=== PATIENT | male | born 1970 | race Caucasian/White ===

== ENCOUNTER 2016-12-03 10:27 | Inpatient (IN) | payer BC ==
--- NOTE | ~2016-12-03 | DS ---
Discharge Summary [facility] [address] [place]. [address] NAME: BETO WOLFF : 70 STATUS : DIS IN PAT#: [id number] AGE: 46 ADM/REG DATE : 12/03/16 MR#: [id number] REPORT SERV DATE: 12/13/16 DICTATED BY: TAYE SUBRAMANIAN DATE: 12/12/16 REPORT STATUS : Draft TRANSCRIBED BY: JOSE CRUZ DATE: 12/12/16 Data Collection from hospitalization DISCHARGE DIAGNOSIS(ES): 1. Inferior ST-elevation myocardial infarction. 2. Coronary artery disease. 3. Diabetes mellitus type 2. 4. Moderate left ventricular dysfunction. CONSULTATIONS: Naheed Garcia M.D. PROCEDURES PERFORMED: 1. Cardiac catheterization and PCI, 12/03/2016. 2. Echocardiogram, 12/05/2016. MEDICATIONS: Aspirin 81 mg daily, Lipitor 80 mg at bedtime, Coreg 6.25 mg twice daily, Humalog 15 units before meals, Humalog level 1 sliding scale before meals and at bedtime, Prinivil 2.5 mg daily, Brilinta 90 mg every 12 hours, Lantus insulin 45 units as directed, and nitroglycerin 0.4 mg sublingually as directed. CONDITION AT DISCHARGE: Upon discharge, he did appear to be doing well and had no complaints. DISPOSITION: He was discharged home to continue an 1800-calorie ADA, Mediterranean cardiac diet with activity as discussed. He was to follow up with me in the office on 12/27/2016, follow up with Pepper Ramsay on 12/12/2016. HOSPITAL COURSE: This 46-year-old male had presented to the [facility] Emergency Department for evaluation of chest discomfort and was found to have an EKG suggestive of evolving inferolateral myocardial infarction. Code STEMI was activated, and I discussed the case with the ER physician. Based on the description of his presentation and the EKG, we elected to proceed with cardiac catheterization. I briefly evaluated the patient prior to his arrival in the catheterization lab, and he reported a history of substernal chest discomfort beginning approximately 7 a.m., which was three hours before I was called while he was doing yard work. This had persisted and was associated with diaphoresis followed by an episode of nausea and vomiting. Upon arrival to the emergency room, his EKG demonstrated ST elevations in the inferior and lateral leads. He was given nitroglycerin with complete resolution of pain and reported no pain at the time of evaluation but with ongoing ST elevations based on telemetry leads. He reported no symptoms in the days prior. He reported no use of illicit substances. He was admitted for further evaluation and treatment. As above, he had been taken to the cardiac clinical laboratory science professor on the day of admission where he did undergo the above catheterization and PCI. He did tolerate this well and was transferred to the recovery room. He had also been seen on the day of admission by Dr. Garcia for medical management. She had noted that his last hemoglobin A1c was at 14 and that he was not on any medication. She placed him on insulin drip level 2 per protocol, and she had also recommended monitoring his blood sugar. Once his blood sugar was below 200, the nurses were to call her and he was to be transitioned to long-acting insulin with sliding scale. He was counseled about his blood sugar and diabetes and a repeat hemoglobin A1c was to be done Discharge Summary [address] [address] NAME: BETO WOLFF : 70 STATUS : DIS IN PAT#: [id number] AGE: 46 ADM/REG DATE : 12/03/16 MR#: [id number] REPORT SERV DATE: 12/13/16 DICTATED BY: TAYE SUBRAMANIAN DATE: 12/12/16 REPORT STATUS : Draft TRANSCRIBED BY: JOSE CRUZ DATE: 12/12/16 following the day of admission. He was afebrile and his vital signs were stable. He was continued on supportive care. He had no complaints of chest pain and did appear to be doing well. On 12/05/2016, he still had no complaints of chest pain and did state that he had felt good. He did undergo the above echocardiogram. He was continued on supportive care. He did undergo diabetic education. Adjustments were also made in his insulin dosages. He had remained in sinus rhythm. On 12/06/2016, he continued in stable condition and had remained in sinus rhythm. He had no new complaints noted. Due to his stable condition, he was then discharged with the above instructions. Information collected by: Fawn Varner. I submit the above information as my discharge summary. FERMÍN/JOSE CRUZ Taye Subramanian MD / [id number] CC: MD Pepper Kahn M.D.
--- NOTE | ~2016-12-03 | CN ---
Consultation Report [facility] [address] [place]. [address] NAME: BETO CABALLERO : 70 STATUS : ADM IN [facility]#: [id number] AGE: 46 ADM/REG DATE : 12/03/16 MR#: [id number] REPORT SERV DATE: 12/03/16 DICTATED BY: DON ESPINAL DATE: 12/03/16 REPORT STATUS : Draft TRANSCRIBED BY: MODMary Kate DATE: 12/03/16 DATE OF CONSULTATION: 12/03/2016 REASON FOR CONSULT: Management of diabetes mellitus with severe hyperglycemia. HISTORY OF PRESENT ILLNESS: Mr. Caballero is a very pleasant 46-year-old male who is admitted by email marketing executive, Dr. Subramanian for ST-elevation myocardial infarction. He is currently in the intensive care unit. Dr. Subramanian is taking care for his infarction. I am consulted for his diabetes because his blood sugar is elevated in the range of 400. The patient reported that he used to be on metformin, but he stopped that two years ago. He used to see Dr. Pepper Ramsay as a primary care physician, but he has not seen her for 2-1/2 years. He says that he does not check his blood sugar. He says that very often he becomes thirsty and drinks a lot of fluid. He denies any history of nausea or vomiting. He denies any history of an eye problems. He denies any history of numbness or burning in his arms and feet. He currently does not have any chest pain, no shortness of breath. He looks very comfortable now. REVIEW OF SYSTEMS: 14-point review of systems done and negative except what is stated in the history of present illness. PAST MEDICAL HISTORY: Known for diabetes, and according to the patient, his last hemoglobin A1c was 14. He has also history of hypertension and hypercholesterolemia in the past. FAMILY HISTORY: Positive for diabetes on the maternal side. MEDICATIONS: He does not take any medications. ALLERGIES: HE IS NOT ALLERGIC TO ANY MEDICINES. SOCIAL HISTORY: He quit smoking seven years ago. No alcohol. No recreational drug use. He is , he has and children. PAST SURGICAL HISTORY: He did not have any surgeries in the past. PHYSICAL EXAMINATION: GENERAL: Overweight male, not in acute distress, resting quietly. VITAL SIGNS: Blood pressure 134/74, temperature 98.5, heart rate 103, respiratory rate 18, and oxygen saturation 95 on room air. HEENT: Head atraumatic, normocephalic. Conjunctivae clear. Pupils are equal and reactive to light and accommodation. Extraocular muscles are intact. NECK: Supple. Trachea is midline. No supraclavicular or cervical lymphadenopathy. LUNGS: Clear to auscultation bilaterally. Normal respiratory effort. CARDIOVASCULAR SYSTEM: Regular rate and rhythm. Point of maximal impulse not displaced. ABDOMEN: Soft, nontender, nondistended. Positive normoactive bowel sounds. EXTREMITIES: No clubbing, cyanosis, or edema. Consultation Report [facility] [id number] [place]. [address] NAME: BETO CABALLERO : 70 STATUS : ADM IN [facility]#: [id number] AGE: 46 ADM/REG DATE : 12/03/16 MR#: [id number] REPORT SERV DATE: 12/03/16 DICTATED BY: DON ESPINAL DATE: 12/03/16 REPORT STATUS : Draft TRANSCRIBED BY: JOSE CRUZ DATE: 12/03/16 SKIN: Normal color and turgor. LABORATORY RESULTS: Blood sugar 422. White count 9.7, hemoglobin 16.7, hematocrit 46.9, platelet count 208. Sodium 139, potassium 3.8, chloride 103, carbon dioxide 25, BUN 11, creatinine 1.28. Magnesium 1.8. Chest x-ray today, normal chest x-ray. ASSESSMENT AND PLAN: This is a 46-year-old male who just had a heart attack and admitted by email marketing executive, Dr. Subramanian. I am consulted for diabetes management. Diabetes management uncontrolled with severe hyperglycemia, medical noncompliance, have not seen a doctor for 2- 1/2 years. Last hemoglobin A1c was 14, not on any medications. We will start the patient on insulin drip level 2 per protocol. We will also monitor his blood sugar. Once blood sugar below 200, nurses to call me to transition him to long-acting insulin with a sliding scale. The patient was told that he needs to take care of his blood sugar because diabetes can cause severe complications such as heart attack, strokes in the future, also retinopathy. He was told that he needs to have eye examination yearly. He needs to check his urine for protein and he needs to have regular visits with Dr. Ramsay. Hemoglobin A1c is ordered. Currently, results are pending. Obesity. The patient will need some diet control and diabetic education regarding diet, obesity, and some physical exercises in the future. We will follow up on this patient. MG/MODL Don Espinal M.D. / [id number] CC: Taye Subramanian MD
--- NOTE | ~2016-12-03 | HP ---
History And Physical [facility] [address] [place]. [address] NAME: BETO CABALLERO : 70 STATUS : ADM IN [facility]#: [id number] AGE: 46 ADM/REG DATE : 12/03/16 MR#: [id number] REPORT SERV DATE: 12/03/16 DICTATED BY: TAYE SUBRAMANIAN DATE: 12/03/16 REPORT STATUS : Draft TRANSCRIBED BY: MODL DATE: 12/03/16 DATE OF ADMISSION: 12/03/2016 ADMISSION DIAGNOSIS: Acute myocardial infarction. HISTORY OF PRESENT ILLNESS: Mr. Caballero is a very pleasant 46-year-old male who presented to [facility] ED today for evaluation of chest discomfort and was found to have an EKG suggestive of evolving inferolateral ND. Code STEMI was activated and I discussed the case with the ER physician. Based on the description of his presentation and the EKG, we elected to proceed to the cardiac catheterization lab. I briefly evaluated the patient prior to his arrival in the lab engineer and he reported a history of substernal chest discomfort starting approximately 7:00 a.m., three hours before I was called while he was doing yard work. This persisted and was associated with diaphoresis, followed by an episode of nausea and vomiting. Upon arrival to the ER, his EKG demonstrated ST elevations in the inferior and lateral leads. He was given nitroglycerin with complete resolution of pain and reports no pain at the time of my evaluation, but with ongoing ST elevations based on telemetry leads. He reports no symptoms in the days prior. He reports no use of illicit substances. PAST MEDICAL HISTORY: Notable for diabetes, currently not managed with any medications. He denies hypertension, hyperlipidemia, history of tobacco abuse. He does have a family history of CAD with his father recently having undergone bypass surgery. ALLERGIES: NONE. MEDICATIONS: None. FAMILY HISTORY: As above. Otherwise, negative. SOCIAL HISTORY: Denies tobacco, alcohol, or illicits. REVIEW OF SYSTEMS: Per HPI. Otherwise, negative. PHYSICAL EXAMINATION: VITAL SIGNS: Blood pressure 150/100, heart rate approximately 95, respiratory rate 16. GENERAL: Appears comfortable. HEENT: Sclerae anicteric; mucous membranes moist. NECK: No JVD. Thyroid not tender or enlarged CARDIOVASCULAR: Regular rhythm with normal S1/S2. No murmurs, rubs, or gallop. PULMONARY: Lung woods CTA. ABDOMEN: Soft, nontender, no masses EXTREMITIES: Warm, no edema. NEUROLOGIC: Grossly without deficits LABORATORY DATA: Labs pending at the time of dictation. EKG, 12/03/2016, time 10:09, demonstrates sinus rhythm, rate 99, ST elevations of approximately 3-4 mm in II, III, AVF, History And Physical [address] [place]. [address] NAME: BETO CABALLERO : 70 STATUS : ADM IN PAT#: [id number] AGE: 46 ADM/REG DATE : 12/03/16 MR#: [id number] REPORT SERV DATE: 12/03/16 DICTATED BY: TAYE SUBRAMANIAN DATE: 12/03/16 REPORT STATUS : Draft TRANSCRIBED BY: JOSE CRUZ DATE: 12/03/16 and V4 through V6, with ST depressions in aVL. No prior EKG for comparison. IMPRESSION/RECOMMENDATIONS: 1. Evolving acute inferior inferolateral myocardial infarction. 2. History of diabetes. 3. Elevated BMI. Based on my evaluation, emergent cardiac catheterization is the next appropriate step for management of ST-elevation ND. He has been given aspirin and heparin and is currently chest pain free. He has a good radial pulse and we will attempt a radial approach if feasible. I have discussed the procedure with him in detail and we will schedule the procedure shortly of stenting but possibility of DICTATION ENDS HERE ANDREW/JOSE CRUZ Taye Subramanian MD / [id number] CC: Taye Subramanian MD
[~2016-12-03 10:27] MED LIST: EXCEDRIN TENSI1 EACH PO
[2016-12-03 10:35] LABS: BASOPHILS 0.2 %; BASOPHILS ABSOLUTE 0.02 10/3/uL (0.0-0.16); ER CBC TAT 0 Hrs 07 Mins; HEMATOCRIT 46.9 % (40.0-51.0); HEMOGLOBIN 16.7 g/dL (13.6-17.8); IMMATURE GRANULOCYTES 0.6 %; IMMATURE GRANULOCYTES ABSOLUTE 0.06 10/3/uL (0.0-0.11); LYMPHOCYTES 19.2 %; LYMPHOCYTES ABSOLUTE 1.87 10/3/uL (0.67-4.30); MANUAL DIFF NO %; MEAN CORPUS HGB CONC 35.6 g/dL (32.0-36.0); MEAN CORPUSCULAR HEMOGLOB 29.5 pg (26.0-34.0); MEAN CORPUSCULAR VOLUME 82.7 fL (80-100); MEAN PLATELET VOLUME 10.7 fL (9.2-13.0); MONOCYTES 4.6 %; MONOCYTES ABSOLUTE 0.45 10/3/uL (0.21-1.20); NEUTROPHILS 74.4 %; NEUTROPHILS ABSOLUTE 7.23 10/3/uL (2.02-8.40); PLATELET COUNT 208 10/3/uL (150-400); RBC DISTRIBUTION WIDTH 12.6 % (12.0-16.0); RED CELL COUNT 5.67 10/6/uL (4.7-6.1); WHITE BLOOD CELLS 9.7 10/3/uL (4.5-10.5)
[2016-12-03 10:43] LABS: PROTIME (NOT ORD) 13.5 SEC (12.0-14.5)
[2016-12-03 10:51] LABS: BUN (BLOOD UREA NITROGEN) 11 MG/DL (6-23); CALCIUM, SERUM 9.9 MG/DL (8.5-10.4); CHEST PAIN PROFILE TAT 0 Hrs 23 Mins; CHLORIDE, SERUM 103 MMOL/L (96-112); CO2 (CARBON DIOXIDE) 25 MMOL/L (24-34); CREATININE 1.28 MG/DL (0.70-1.30); GFR AFRICAN AMERICAN 77 ML/MIN (>=60); GFR NON AFRICAN AMERICAN 67 ML/MIN (>=60); POTASSIUM, SERUM 3.8 MMOL/L (3.5-5.3); SODIUM, SERUM 139 MMOL/L (135-148); TROPONIN I 0.03 NG/ML (<0.05)
[2016-12-03 10:53] LABS: GLUCOSE, SERUM 422 MG/DL (60-99)
[2016-12-03 16:54] LABS: CK-MB 247.6 NG/ML
[2016-12-03 17:34] LABS: ASCORBIC ACID (UR NOT ORDER) NEG (NEG); BILIRUBIN, URINE NEGATIVE (NEG); KETONE, URINE 80 MG/DL (NEG); LEUKOCYTE ESTERASE(NOT OR NEG (NEG); WBC (NOT ORDERED) (RFLEX) < 1 (0-5)
[2016-12-03 23:28] LABS: CK-MB 184.7 NG/ML
[2016-12-03 23:29] LABS: CKMB INDEX (NOT ORD) 6.2
[2016-12-04 06:01] LABS: BASOPHILS 0.1 %; BASOPHILS ABSOLUTE 0.01 10/3/uL (0.0-0.16); EOSINOPHILS 0.3 %; EOSINOPHILS ABSOLUTE 0.03 10/3/uL (0.0-0.53); HEMATOCRIT 41.5 % (40.0-51.0); HEMOGLOBIN 14.5 g/dL (13.6-17.8); IMMATURE GRANULOCYTES 0.4 %; IMMATURE GRANULOCYTES ABSOLUTE 0.04 10/3/uL (0.0-0.11); LYMPHOCYTES 22.6 %; LYMPHOCYTES ABSOLUTE 2.02 10/3/uL (0.67-4.30); MEAN CORPUS HGB CONC 34.9 g/dL (32.0-36.0); MEAN CORPUSCULAR HEMOGLOB 28.9 pg (26.0-34.0); MEAN CORPUSCULAR VOLUME 82.8 fL (80-100); MEAN PLATELET VOLUME 10.7 fL (9.2-13.0); MONOCYTES 6.7 %; NEUTROPHILS 69.9 %; NEUTROPHILS ABSOLUTE 6.25 10/3/uL (2.02-8.40); PLATELET COUNT 184 10/3/uL (150-400); RED CELL COUNT 5.01 10/6/uL (4.7-6.1)
[2016-12-04 06:02] LABS: MANUAL DIFF NO %
[2016-12-04 06:27] LABS: CHLORIDE, SERUM 106 MMOL/L (96-112); CHOL/HDL RATIO(NOT ORDER) 8.3 (0-5); CHOLESTEROL 207 MG/DL (< 200); CK-MB 105.5 NG/ML; CO2 (CARBON DIOXIDE) 25 MMOL/L (24-34); CPK 2004 U/L (0-200); CREATININE 0.85 MG/DL (0.70-1.30); GFR AFRICAN AMERICAN 121 ML/MIN (>=60); GFR NON AFRICAN AMERICAN 104 ML/MIN (>=60); HDL CHOLESTEROL 25 MG/DL (> 39); NON-HDL CHOLESTEROL 182 MG/DL (< 160); POTASSIUM, SERUM 3.3 MMOL/L (3.5-5.3); SODIUM, SERUM 140 MMOL/L (135-148); TRIGLYCERIDE 418 MG/DL (< 150)
[2016-12-04 06:28] LABS: BUN (BLOOD UREA NITROGEN) 15 MG/DL (6-23); CALCIUM, SERUM 8.7 MG/DL (8.5-10.4); GLUCOSE, SERUM 187 MG/DL (60-99)
[2016-12-04 06:29] LABS: CKMB INDEX (NOT ORD) 5.3
[2016-12-04 15:02] LABS: CK-MB 54.2 NG/ML
[2016-12-04 15:23] LABS: CKMB INDEX (NOT ORD) 3.9
[2016-12-05 05:36] LABS: BASOPHILS 0.1 %; BASOPHILS ABSOLUTE 0.01 10/3/uL (0.0-0.16); CALCIUM, SERUM 8.7 MG/DL (8.5-10.4); CHLORIDE, SERUM 107 MMOL/L (96-112); CO2 (CARBON DIOXIDE) 21 MMOL/L (24-34); CREATININE 0.82 MG/DL (0.70-1.30); EOSINOPHILS ABSOLUTE 0.07 10/3/uL (0.0-0.53); GFR AFRICAN AMERICAN 123 ML/MIN (>=60); GFR NON AFRICAN AMERICAN 106 ML/MIN (>=60); HEMATOCRIT 41.3 % (40.0-51.0); HEMOGLOBIN 14.2 g/dL (13.6-17.8); IMMATURE GRANULOCYTES 0.4 %; IMMATURE GRANULOCYTES ABSOLUTE 0.03 10/3/uL (0.0-0.11); LYMPHOCYTES ABSOLUTE 1.59 10/3/uL (0.67-4.30); MEAN CORPUS HGB CONC 34.4 g/dL (32.0-36.0); MEAN CORPUSCULAR HEMOGLOB 28.9 pg (26.0-34.0); MEAN CORPUSCULAR VOLUME 84.1 fL (80-100); MEAN PLATELET VOLUME 10.6 fL (9.2-13.0); MONOCYTES 7.5 %; MONOCYTES ABSOLUTE 0.52 10/3/uL (0.21-1.20); NEUTROPHILS ABSOLUTE 4.68 10/3/uL (2.02-8.40); PLATELET COUNT 179 10/3/uL (150-400); RBC DISTRIBUTION WIDTH 12.8 % (12.0-16.0); RED CELL COUNT 4.91 10/6/uL (4.7-6.1); SODIUM, SERUM 138 MMOL/L (135-148); WHITE BLOOD CELLS 6.9 10/3/uL (4.5-10.5)
[2016-12-05 05:37] LABS: BUN (BLOOD UREA NITROGEN) 20 MG/DL (6-23); GLUCOSE, SERUM 242 MG/DL (60-99)
[2016-12-05 05:40] LABS: MANUAL DIFF NO %
[2016-12-06 05:34] LABS: BASOPHILS 0.2 %; BASOPHILS ABSOLUTE 0.01 10/3/uL (0.0-0.16); EOSINOPHILS 0.7 %; EOSINOPHILS ABSOLUTE 0.04 10/3/uL (0.0-0.53); HEMATOCRIT 41.6 % (40.0-51.0); HEMOGLOBIN 14.3 g/dL (13.6-17.8); IMMATURE GRANULOCYTES 0.5 %; IMMATURE GRANULOCYTES ABSOLUTE 0.03 10/3/uL (0.0-0.11); LYMPHOCYTES 29.5 %; LYMPHOCYTES ABSOLUTE 1.77 10/3/uL (0.67-4.30); MEAN CORPUS HGB CONC 34.4 g/dL (32.0-36.0); MEAN CORPUSCULAR HEMOGLOB 28.9 pg (26.0-34.0); MEAN PLATELET VOLUME 10.9 fL (9.2-13.0); MONOCYTES 9.5 %; MONOCYTES ABSOLUTE 0.57 10/3/uL (0.21-1.20); NEUTROPHILS 59.6 %; NEUTROPHILS ABSOLUTE 3.59 10/3/uL (2.02-8.40); PLATELET COUNT 181 10/3/uL (150-400); RBC DISTRIBUTION WIDTH 12.6 % (12.0-16.0); RED CELL COUNT 4.95 10/6/uL (4.7-6.1)
[2016-12-06 05:40] LABS: MANUAL DIFF NO %
[2016-12-06 05:46] LABS: CALCIUM, SERUM 8.5 MG/DL (8.5-10.4); CHLORIDE, SERUM 108 MMOL/L (96-112); CO2 (CARBON DIOXIDE) 23 MMOL/L (24-34); CREATININE 0.76 MG/DL (0.70-1.30); GFR AFRICAN AMERICAN 127 ML/MIN (>=60); GFR NON AFRICAN AMERICAN 109 ML/MIN (>=60); SODIUM, SERUM 140 MMOL/L (135-148)
[2016-12-06 05:47] LABS: BUN (BLOOD UREA NITROGEN) 16 MG/DL (6-23); GLUCOSE, SERUM 156 MG/DL (60-99)
[2016-12-06] MEDS ORDERED: ASAB PO (09:59)
[2016-12-06] MEDS ORDERED: LANTUSCART SC (10:00)
[2016-12-06] MEDS ORDERED: HUMALOG KW200 UNIT/1 SQ (10:00)
[2016-12-06] MEDS ORDERED: HUMALOG KW200 UNIT/1 (10:02)
[2016-12-06] MEDS ORDERED: COREG6 PO (10:02)
[2016-12-06] MEDS ORDERED: LIPITOR80 MG PO (10:02)
[2016-12-06] MEDS ORDERED: BRILINTA90 MG PO (10:02)
[2016-12-06] MEDS ORDERED: NITROSTAT0.4 MG SL (10:03)
== END 2016-12-06 13:34 | disposition home or self-care (01) | DRG 247 ==
LOC: ER 10:27 → MIC 11:08 → 5NO 12-04 15:12
PROVIDERS: Hospitalist; Internal Medicine Cardiovascular Disease
PROC: 4A023N7 Measurement of Cardiac Sampling and Pressure, Left Heart, Percutaneous Approach (ICD-10-PCS; principal; 2016-12-03)
PROC: 027034Z Dilation of Coronary Artery, One Artery with Drug-eluting Intraluminal Device, Percutaneous Approach (ICD-10-PCS; 2016-12-03)
PROC: B2111ZZ Fluoroscopy of Multiple Coronary Arteries using Low Osmolar Contrast (ICD-10-PCS; 2016-12-03)
PROC: B2151ZZ Fluoroscopy of Left Heart using Low Osmolar Contrast (ICD-10-PCS; 2016-12-03)
DX: I21.19 ST elevation (STEMI) myocardial infarction involving other coronary artery of inferior wall (principal); E11.65 Type 2 diabetes mellitus with hyperglycemia; I10 Essential (primary) hypertension; Z68.41 Body mass index [BMI] 40.0-44.9, adult; E66.01 Morbid (severe) obesity due to excess calories; E78.00 Pure hypercholesterolemia, unspecified; Z87.891 Personal history of nicotine dependence
CPT/HCPCS: 71010; 80048; 80061; 81001; 82550; 82553; 82962; 83036; 83735; 84132; 84484; 85025; 85610; 85730; 87641; 93005; 93458; 99152; 99153; 99285; A9270-GY; C1725; C1769; C1874; C1887; C1894; C8929; C9606; J0583; J2250; J3010; Q9957; Q9967